=== PATIENT | male | born 1945 | race Caucasian/White ===

== ENCOUNTER 2021-11-29 12:00 | Outpatient (RCR) | payer MEDICARE, OTHER, SELFPAY ==
--- NOTE | 2021-10-27 13:14 | HP.PTEVAL ---
Patient's Visit Information CHE HUSAIN is a 76 year old M referred to Physical Therapy by NOEMY DANIELS with a diagnosis of balance problem and muscular deconditioning.. Date of Evaluation: 10/27/21 Physical Therapist: Kirill Bradley DPT, OCS, CSCS - Visit Plan Frequency: 2x /Week Duration: 4-6 Weeks Plan: 2x/week for 4-6 weeks for. 1. Please instruct and progress and give HO on HEP for LE and postural strength with bands and dumbbells as safety allows, pt has some exercises at home which he will bring next session. 2. Include weight shift for golf swing, head movement balance exercises, turns. - Subjective Has Prostate CA and metastasized into hip sternum , shoulder LB and has bladder Ca also. Treating prostate with Xtandi and injection Lupron. Zomatic for the bones to keep calcium. Bladder Ca treatment is over with final inspection December 01 with meds Mitomycin. No chemo or radiation. My daughter made me come. He admits to occasional imbalance and shuffling to keep balance and possible inner ear problems. No spinning, feel unsteady with quick move on feet sometimes. Gets SOB very quickly. His heart is fine according to chemical stress test but fatigue is side effect of meds. Is losing weight and muscle mass as meds take testosterone out of body. Gets tired after 100 feet to mailbox makes him tired and there is a hill. One stumble walking on sidewalk at front catching edge of [facility] area and could not catch up with it and fell on face and hands. That was 6 weeks ago. Lives with in two story with full basement. has railing and needs it. Pain is not an issue most of time, hip pain sometimes burning in hips with overuse and this keeps him from walking at mall etc. Improving over time. Goes away if he sits down. Dress, bathe and shower I. Not employed, retired sitting desk job. No recent exercises, enjoys golf but not since last fall. Wants to do it again. Spends day watching news, eating breakfast, takes meds, honey do list and this is abbreviated. Sleeps on couch in recliner as it is more comfortable. Hobbies: grandkids. Walking with 3 days per week for 20 minutes and needs a rest some days.Does some band exercises UE and LE. has recumbent bike at home but not using it. has dumbbells 10/26/14 at home but not using them. - Objective HR 100 , 98% spO2 after ambulation. Patient ambulates slowly but safely without AD back to PT room I. Transfers without UE I. Steps without UE i but weak coming down. walking VOR is I without symptoms. Oculomotor is unremarkable today: no nystagmus with gaze or head shake, pursuit and saccades are normal, VO is normal and without symptoms. - skew eye deviation, - ocular tilt. UE adn LE AROM WFL, strength UE 4- and LE 4/5 without myotomal abnormalities. reflexes 2/3 patella and achilles. flexibility shows some mild tightness HS and achilles but functional. golf swing at 505 and 75% on grass is I. fatigues after walking 300 feet, one flight steps and golf swings and drags R foot on the rug one time self corrected. Sensation LE WNL to gross light touch. - Balance/Special Test Scores Functional Gait Assessment Score: 26 % Disability: 13.3400 CATSIB Score (Max score 120 seconds): 120 Lower Extremity Functional Score: 11 TUG Test Time Seconds: 12 - Goals Goal 1:: Return to golf 9 holes without fatigue limiting his game. Goal Time Frame: 4-6 Weeks Goal 2:: I approp HEP for LE adn postural strength, weight shifts, balance to minimize future problems. Goal Time Frame: 4-6 Weeks Goal 3:: LEFS 33+ score Goal Time Frame: 4-6 Weeks Goal 4:: Patient able to walk 30 minutes without deficits Goal Time Frame: 4-6 Weeks Goal 5:: Pt feel 75% improved in overallcondition Goal Time Frame: 4-6 Weeks - Rehabilitation Potential Physical Therapy Diagnosis: deconditioned and sedentarism effecting function Rehabilitation Potential: Fair - Anticipated Interventions Patient/Client Instruction: Educate patient on: Condition, Plan of Care For the Purpose of:: To improve muscle performance and motor function, To increase tolerance to activity/condition/position Therapeutic Exercise to Include: Strength training, Balance training, Gait and locomotor training For the Purpose of:: To improve muscle performance and motor function, To increase tolerance to activity/condition/position Thank you for the opportunity to evaluate your patient. For Medicare and Medicare HMO plans, please review the plan of care and approve it. It will need to be FAXED BACK to us at [phone] for Medicare purposes. For Medicare only, by signing this I certify the plan of care. Please let me know if there are questions or concerns regarding this plan of care. Physician Signature: Date:
--- NOTE | 2021-11-29 12:43 | HP.PTREVAL ---
NOEMY DANIELS, It has been my pleasure to treat CHE HUSAIN over the last 9 visits for balance problem and muscular deconditioning.. Please see the progress note below for an update on the physical therapy plan of care! Subjective: Doing Ok. wearing L knee brace today which helps. I know I can walk further without total fatigue. Stamina is a lot better. breathing is not limiting factor anymore but more hip pain which is intermittent and less frequent than it used to be. Doing HEP of walking outdoors for 1 mile and felt Ok when done, just needed a rest. Looks for paved trails with a bench. Does his therapy given from PT 3-4x/week. Objective/Function: 85HR after ambualtion today. Walking up much taller and not fatigued after session. FGA +4. TUG 5 seconds better. LEFS much improved. Feeling better adn asserts that he is not as tired at home and sleeping less. Overall good improvement by measurable standards and report. Plan Plan: Appropriate to f/u in one month to ensure progress/maintenance on own and then d/c, pt to call prior if worsens. New maintenance goal set and appropriate with good rpognosis with compliance with HEP Balance/Gait/Functional tests - Balance/Special Test Scores Functional Gait Assessment Score: 30 % Disability: 0 CATSIB Score (Max score 120 seconds): 120 Lower Extremity Functional Score: 52 TUG Test Time Seconds: 7 Goals Goal 1:: Return to golf 9 holes without fatigue limiting his game. Goal Time Frame: 4-6 Weeks Goal Progress: Goal Met Goal 2:: I approp HEP for LE adn postural strength, weight shifts, balance to minimize future problems. Goal Time Frame: 4-6 Weeks Goal Progress: Goal Met Goal 3:: LEFS 33+ score Goal Time Frame: 4-6 Weeks Goal Progress: Goal Met Goal 4:: Patient able to walk 30 minutes without deficits Goal Time Frame: 4-6 Weeks Goal Progress: Goal Met Goal 5:: Pt feel 75% improved in overallcondition Goal Time Frame: 4-6 Weeks Goal Progress: 60% Goal 6:: maitnain improvement in subjective, FGA, TUG and LEFS with just home exercise x 1 month Goal Time Frame: 4-6 Weeks Anticipated Interventions Patient/Client Instruction: Educate patient on: Condition, Plan of Care For the Purpose of:: To improve muscle performance and motor function, To increase tolerance to activity/condition/position Therapeutic Exercise to Include: Strength training, Balance training, Gait and locomotor training For the Purpose of:: To improve muscle performance and motor function, To increase tolerance to activity/condition/position Please do not hesitate to contact me at [phone] by phone or if you have questions or concerns regarding this new plan of care! Sincerely, Kirill Bradley, MASSIELT, OCS, CSCS
--- NOTE | 2022-01-21 07:28 | HP.PT.NRP ---
CHE HUSAIN was seen in my office for initial evaluation on 10/27/21. The following Plan of Care was established for this patient: Initial Frequency: 2x /Week Initial Duration: 4-6 Weeks Patient/Client Instruction: Educate patient on: Condition, Plan of Care For the Purpose of:: To improve muscle performance and motor function, To increase tolerance to activity/condition/position Therapeutic Exercise to Include: Strength training, Balance training, Gait and locomotor training For the Purpose of:: To improve muscle performance and motor function, To increase tolerance to activity/condition/position This patient was last seen in our office 11/29/21. Pertinent comments regarding their Physical therapy will appear below: Pt seen 9 visits of strengthening and was 60% better. He was to continue with HEP and f/u one month later but did not schedule or attend. At this point, it has been over 7 weeks and I will discontinue from my care. At this point I will be discontinuing this patient from physical therapy. I would be happy to see this patient again in the future if found appropriate by the physician. Thank you! Kirill Bradley, DPT, OCS, CSCS Balance/Gait/Functional tests - Balance/Special Test Scores Functional Gait Assessment Score: 30 % Disability: 0 CATSIB Score (Max score 120 seconds): 120 Lower Extremity Functional Score: 52 TUG Test Time Seconds: 7
== END 2021-11-29 19:00 | disposition home or self-care (01) ==
LOC: PT 12:00
DX: E11.29 Type 2 diabetes mellitus with other diabetic kidney complication (principal); R80.9 Proteinuria, unspecified; Z91.81 History of falling; R29.898 Other symptoms and signs involving the musculoskeletal system; R26.89 Other abnormalities of gait and mobility
CPT/HCPCS: 97110; 97116; 97162; 97164

== ENCOUNTER 2022-08-25 10:00 | Outpatient (RCR) | payer MEDICARE, OTHER, SELFPAY ==
--- NOTE | 2022-07-20 11:12 | HP.PTEVAL ---
Patient's Visit Information CHE HUSAIN is a 76 year old M referred to Physical Therapy by NOEMY DANIELS MD with a diagnosis of Generalized weakness, physical deconditioning.. Date of Evaluation: 07/20/22 Physical Therapist: MASSIEL JordanT, OCS, CSCS - Visit Plan Frequency: 2x /Week Duration: 4-6 Weeks Plan: 2x/week for 4-6 weeks for. 1. home and machine based LE and core strength and postural UE strength Pt is unsure of final exit strategy but we should work toward combination of exercises that can safely be done at home(quickly) and gym exercise. We can include stretching to quads and psoas and lumbar extension to tolerance. We should include steps and golf sim movements. - Subjective June to November of last year lost 20# and very fatigued due to meds for CA. Has prostate CA with mets and bladder CA. Those cancers are unrelated. Also has ulcer in stomach and some skin CA on head. Now on meds for ulcer. Did get back to golf last year after therapy. He is back now to build muscle as he has very little testosterone. needs to eat a lot of protein and is trying to get that in his diet. Is still on drugs for CA immunotherapy which do not make him sick. It is working. Exercises fell to the wayside as he was doing well but still gets fatigued. Hoping that working out in PT will progress back to HEP. Current daily activity is low. Doesn't do a whole lot. pays bills, 2-3x/week walks [employer] for 20-30 minutes with a rest in there. Hips getting tired is limiting factor causing him to rest. At times SOB. Generally takes a nap after his ex. Otherwise fairly sedentary. Basic ADLS dressing showering bathing, can cook but does not much...hard to stand very long(>15 minutes to wash dishes is tiring). - Objective Posture in hunched forward at shoulders with kyphosis in thoracic spine and flat lumbar curve. 51 R quad and 45 L quad. 97spO2 at rest adn 74 HR at rest. 104 HR after steps and 98 spO2. Walks I, transfers chair I with UE, bed transfers is I. Floor transfer is I with support and weakness obvious getting up off floor. Steps are reciprocal with one rail required. VOR is good and asymptomatic. LE strength 4 knees, 3+ hip abd and extension, 4 ankles. reflexes 2/3 bi and tri and patella and achilles. Sensation LE WNL to grosslight touch. UE AROM stiff at end range of shoulder elevation but not painful, otherwise WFL. LE AROM WFL, tightness in quads and psoas evident . Lumbar extension max limited and slightly painful, flexion min limited. Can straighten up while walking when asked but carryover is poor past 20 seconds. - Balance/Special Test Scores Functional Gait Assessment Score: 28 % Disability: 6.6700 Lower Extremity Functional Score: 36 TUG Test Time Seconds: 10 30 Second Chair Rise Test Seconds: 10 - Goals Goal 1:: 14 in 30 second chair sit test. Goal Time Frame: 4-6 Weeks Goal 2:: patient feel 75% better in overall acitvity adn mobility Goal Time Frame: 4-6 Weeks Goal 3:: Stand with chest out to wash dishes or other 30 minutes without fatigue. Goal Time Frame: 4-6 Weeks Goal 4:: Walk 30 minutes without needing to rest at mall Goal Time Frame: 4-6 Weeks Goal 5:: I approp HEP to help minimize future problems, maximize strength adn get ready for golf. Goal Time Frame: 4-6 Weeks - Rehabilitation Potential Physical Therapy Diagnosis: Weakness and inactivity creating mobiity deficits Rehabilitation Potential: Fair - Anticipated Interventions Patient/Client Instruction: Educate patient on: Condition, Plan of Care For the Purpose of:: To improve muscle performance and motor function, To increase tolerance to activity/condition/position, To improve ability of physical actions for home/community/work/leisure Therapeutic Exercise to Include: Strength training, Endurance training, Postural training, Flexibilty training, Dynamic Lumbar Stabilization For the Purpose of:: To increase ROM, To improve nutrient delivery to tissue, To improve muscle performance and motor function, To increase tolerance to activity/condition/position, To improve ability of physical actions for home/community/work/leisure Thank you for the opportunity to evaluate your patient. For Medicare and Medicare HMO plans, please review the plan of care and approve it. It will need to be FAXED BACK to us at [phone] for Medicare purposes. For Medicare only, by signing this I certify the plan of care. Please let me know if there are questions or concerns regarding this plan of care. Physician Signature: Date:
--- NOTE | 2022-08-25 10:45 | HP.PTDCSUM_ITS ---
It has been my pleasure to treat CHE HUSAIN referred by NOEMY DANIELS MD, with the diagnosis of Generalized weakness, physical deconditioning. for a total of 9 visit(s). Discharge Date: 08/25/22 Please see the following information for a summary of their discharge status. Subjective: Better than a month ago, much better. I feel stronger. More motiva lona. accomplishing something with all this exercises. Gained 2# of muscle. Sleeps well. Not much pain. Feels like he could golf. Plans to walk MWF and Monday and use weights at rec center. Has been doing that for two weeks now and feels like he can continue. Knows what to do at the gym and verbally reviews it today. bilat LE Pain Intensity (Out of 10): 0 bilat SH Pain Intensity (Out of 10): 0 % Improvement: 50 Objective/Function: +1 30 sec sit to stand. +2 FGA. Walking around safely and easily and up taller today for entire workout. Goal 1:: 14 in 30 second chair sit test. Goal Progress: 13 Goal 2:: patient feel 75% better in overall acitvity adn mobility Goal Progress: 50% Goal 3:: Stand with chest out to wash dishes or other 30 minutes without fatigue. Goal Progress: Goal Met Goal 4:: Walk 30 minutes without needing to rest at mall Goal Progress: Goal Met Goal 5:: I approp HEP to help minimize future problems, maximize strength adn get ready for golf. Goal Progress: Goal Met Plan: d/c to HEP Discharge Comments: Pt to continue 2x/week strength adn 3x/week walking at home/mall and [employer]. If there are questions or concerns regarding this patient's physical therapy, please feel free to call me at [phone]. Thank you for the referral of this patient. Sincerely, Kirill Bradley, DPT, OCS, CSCS Balance/Gait/Functional tests - Balance/Special Test Scores Functional Gait Assessment Score: 30 % Disability: 0 Lower Extremity Functional Score: 40 TUG Test Time Seconds: 10 Tug Test: <20 sec.=mostly independent 30 Second Chair Rise Test Seconds: 13
== END 2022-08-25 11:42 | disposition home or self-care (01) ==
LOC: PT 10:00
PROVIDERS: Visit Provider Family Medicine
DX: C79.51 Secondary malignant neoplasm of bone (principal); C61 Malignant neoplasm of prostate; E11.29 Type 2 diabetes mellitus with other diabetic kidney complication; R80.9 Proteinuria, unspecified; I25.10 Atherosclerotic heart disease of native coronary artery without angina pectoris; R53.81 Other malaise; R53.1 Weakness
CPT/HCPCS: 97110; 97161; 97164